=== PATIENT | female | born 1945 | race Caucasian/White ===

== ENCOUNTER → 2017-02-26 | Outpatient (CLI) | payer MEDICARE, OTHER ==
[~2017-02-26] MED LIST: ALBU8.5H5 INH; AMLO10TA2 PO; ATOR40TA78 PO; DICL100T2 PO; DOCU100T3 PO; ESOM40CA PO; FLUT250D INH; GABA600T2 PO; GLIP5TAB10 PO; HYDR-3144 PO; LISI40TA PO; LORA1TAB PO; SERT100T5 PO; TIOT18CA INH; TRAZ50TA18 PO; TRIA15CR3 TP; VALA1000 PO; VARE0.5T PO; VENL75TA2 PO
[2017-02-26 15:08] LABS: BLOOD UREA NITROGEN 18 mg/dL (7-18); PATH.CAST-FLAG NOT PRESENT; SPERM-FLAG NOT PRESENT; SRC-FLAG NOT PRESENT; XTAL-FLAG NOT PRESENT; YLC-FLAG NOT PRESENT
[2017-02-26 15:09] LABS: ASPARTATE AMINO TRANSFERASE 24 U/L (15-37)
[2017-02-27 10:06] LABS: CREATININE URINE 130.9 mg/dL (Not Estab.)
== END | disposition home or self-care (01) ==
LOC: LAB 14:20
PROVIDERS: ATTEND Internal Medicine
DX: I10 Essential (primary) hypertension (principal); E11.29 Type 2 diabetes mellitus with other diabetic kidney complication; E78.4 Other hyperlipidemia; G89.4 Chronic pain syndrome; Z20.5 Contact with and (suspected) exposure to viral hepatitis; F17.210 Nicotine dependence, cigarettes, uncomplicated
CPT/HCPCS: 36415; 80053; 80061; 81001; 82043; 82570; 83036; 84443; 85025; 86803; 87077; 87086

== ENCOUNTER → 2017-05-25 | Outpatient (CLI) | payer MEDICARE, OTHER ==
[2017-05-25 11:52] LABS: PATH.CAST-FLAG NOT PRESENT; SPERM-FLAG NOT PRESENT; SRC-FLAG NOT PRESENT; XTAL-FLAG NOT PRESENT; YLC-FLAG NOT PRESENT
[2017-05-25 12:00] LABS: ASPARTATE AMINO TRANSFERASE 24 U/L (15-37); BLOOD UREA NITROGEN 13 mg/dL (7-18)
== END | disposition home or self-care (01) ==
LOC: STAR 10:16
PROVIDERS: ATTEND Neurological Surgery
DX: Z01.818 Encounter for other preprocedural examination (principal); M51.36 Other intervertebral disc degeneration, lumbar region; M89.9 Disorder of bone, unspecified; R82.99 Other abnormal findings in urine; R79.1 Abnormal coagulation profile; Z96.611 Presence of right artificial shoulder joint
CPT/HCPCS: 36415; 71020; 80053; 81001; 85025; 85610; 85730; 87077; 87086; 93005

== ENCOUNTER 2017-06-04 05:45 | Inpatient (IN) | payer MEDICARE, OTHER ==
[~2017-06-04] VITALS: Ht 172.7 cm; Wt 70.2 kg
[2017-06-04] MEDS ORDERED: BUPIVACAINE/PF-EPI 0.5% 1:200K ONE (06:00)
[2017-06-04] MEDS ORDERED: THROMBIN 5,000 UNIT VIAL TP ONE (06:01)
[2017-06-04] MEDS ORDERED: BUPIVACAINE/PF 0.25% ONE (06:01)
[2017-06-04] MEDS ORDERED: BACITRACIN 50,000 UNIT ONE (06:01)
[2017-06-04] MEDS ORDERED: REMIFENTANIL 2 MG ONE ×2 (06:42→08:40)
[2017-06-04] MEDS ORDERED: LACTATED RINGERS 1,000 ML IV SCH (06:43)
[2017-06-04] MEDS ORDERED: FENTANYL PF 250 MCG/5ML ONE (06:50)
[2017-06-04] MEDS ORDERED: MIDAZOLAM 1 MG/ML, 2ML ONE (06:50)
[2017-06-04] MEDS ORDERED: PHENYLEPHRINE 10 MG/ML ONE (07:03)
[2017-06-04] MEDS ORDERED: GLYCOPYRROLATE 0.2MG/1ML ONE (07:03)
[2017-06-04] MEDS ORDERED: NEOSTIGMINE 1 MG/ML, 10ML ONE (07:03)
[2017-06-04] MEDS ORDERED: PROPOFOL 10 MG/ML, 20ML ONE (07:03)
[2017-06-04] MEDS ORDERED: DEXAMETHASONE 4 MG/ML, 1ML ONE (07:03)
[2017-06-04] MEDS ORDERED: ROCURONIUM 10 MG/ML ONE (07:03)
[2017-06-04] MEDS ORDERED: CEFAZOLIN 1,000 MG ONE (07:03)
[2017-06-04] MEDS ORDERED: METOCLOPRAMIDE 5 MG/ML, 2ML ONE (07:03)
[2017-06-04] MEDS ORDERED: ONDANSETRON 2MG/ML, 2ML ONE (07:03)
[2017-06-04] MEDS ORDERED: KETAMINE 10 MG/ML, 20ML ONE (07:14)
[2017-06-04] MEDS ORDERED: OXYcodone 5 MG/5 ML ORAL.SOL UDC PO PRN (07:30)
[2017-06-04] MEDS ORDERED: ACETAMINOPHEN 325 MG TABLET PO PRN (07:30)
[2017-06-04] MEDS ORDERED: HYDROmorphone 1 MG/ML, 1ML IV PRN (07:30)
[2017-06-04] MEDS ORDERED: ALBUTEROL SULFATE 2.5 MG/3 ML NPPB PRN ×2 (07:30→12:30)
[2017-06-04] MEDS ORDERED: MIDAZOLAM 1 MG/ML, 2ML IV PRN (07:30)
[2017-06-04] MEDS ORDERED: PROMETHAZINE 25 MG/ML, 1ML IV PRN (07:30)
[2017-06-04] MEDS ORDERED: FENTANYL PF 100 MCG/2ML IV PRN (07:30)
[2017-06-04] MEDS ORDERED: hydrALAzine 20 MG/ML, 1ML IV PRN (07:30)
[2017-06-04] MEDS ORDERED: LABETALOL 5MG/ML, 20ML IV PRN (07:30)
[2017-06-04] MEDS ORDERED: ONDANSETRON 2MG/ML, 2ML IVPush PRN ×2 (07:30→10:30)
[2017-06-04] MEDS ORDERED: BUPIVACAINE/PF-EPI 0.5% 1:200K INFIL ONE (08:05)
[2017-06-04] MEDS ORDERED: FENTANYL PF 100 MCG/2ML EPIDPUSH ONE (08:07)
[2017-06-04] MEDS ORDERED: FENTANYL PF 100 MCG/2ML ONE ×2 (09:45→11:03)
[2017-06-04] MEDS ORDERED: LORazepam 1MG TABLET PO PRN (10:30)
[2017-06-04] MEDS ORDERED: HYDROcodone/APAP 5/325 TABLET PO PRN (10:30)
[2017-06-04] MEDS ORDERED: INSULIN REGULAR 100 UNITS/ML, 3ML VIAL SQ-INSULIN PRN (10:30)
[2017-06-04] MEDS ORDERED: PROMETHAZINE 25 MG/ML, 1ML IM PRN (10:30)
[2017-06-04] MEDS ORDERED: PHARMACY MAY ADJ FOR RENAL FX MC PRN (10:30)
[2017-06-04] MEDS ORDERED: DIPHENHYDRAMINE 50 MG/ML, 1ML IVPush PRN (10:30)
[2017-06-04] MEDS ORDERED: ACETAMINOPHEN 650 MG/20.3 ML UDC ONE (11:02)
[2017-06-04] MEDS ORDERED: ACETAMINOPHEN 325 MG/10.15 ML UDC ONE (11:03)
[2017-06-04] MEDS ORDERED: OXYcodone 5 MG/5 ML ORAL.SOL UDC ONE (11:03)
[2017-06-04 12:00] VITALS: BP 123/72
[2017-06-04] MEDS: INSULIN REGULAR 100 UNITS/ML, 3ML VIAL SQ-INSULIN SCH ×3 (12:00→22:45)
[2017-06-04 12:10] VITALS: BP 123/72
[2017-06-04] MEDS ORDERED: ALBUTEROL/IPRATROPIUM 2.5MG/0.5MG, 3 ML ONE (13:34)
[2017-06-04] MEDS: ALBUTEROL/IPRATROPIUM 2.5MG/0.5MG, 3 ML NPPB SCH ×2 (13:40→21:00)
[2017-06-04 14:00] VITALS: BP 154/65
[2017-06-04] MEDS: HYDROcodone/APAP 10/325 MG TABLET PO PRN ×2 (15:45→22:32)
[2017-06-04] MEDS: GABAPENTIN 300 MG CAPSULE PO SCH ×2 (15:45→22:33)
[2017-06-04] MEDS: D5%-0.9% NACL+KCL 20MEQ 1,000 ML IV SCH (15:46)
[2017-06-04] MEDS: CEFAZOLIN PMX 1GM/50ML 50 ML IVPB SCH ×2 (15:46→22:32)
[2017-06-04] MEDS: morphine SULFATE 10 MG/ML, 1ML IVPush PRN (18:06)
[2017-06-04 20:15] VITALS: BP 162/79
[2017-06-04] MEDS ORDERED: FLUTICASONE FUROATE 200MCG/INH INH SCH (21:00)
[2017-06-04] MEDS: FLUTICASONE FUROATE 200MCG/INH INH SCH (21:00)
[2017-06-04 22:30] VITALS: BP 139/78
[2017-06-04] MEDS: ATORVASTATIN 40 MG TABLET PO SCH (22:32)
[2017-06-04] MEDS: LISINOPRIL 20 MG TABLET PO SCH (22:33)
[2017-06-04] MEDS: TRAZODONE 50MG TABLET PO SCH (22:37)
[2017-06-04] MEDS: SODIUM CHLORIDE FLUSH 10ML SYR IVF SCH (22:38)
[2017-06-04 23:40] VITALS: BP 143/66
[2017-06-05] MEDS: ALBUTEROL/IPRATROPIUM 2.5MG/0.5MG, 3 ML NPPB SCH ×4 (02:40→20:55)
[2017-06-05] MEDS: D5%-0.9% NACL+KCL 20MEQ 1,000 ML IV SCH ×2 (03:19→17:10)
[2017-06-05 03:53] VITALS: BP 133/71
[2017-06-05] MEDS: HYDROcodone/APAP 10/325 MG TABLET PO PRN ×2 (06:20→10:13)
[2017-06-05] MEDS: INSULIN REGULAR 100 UNITS/ML, 3ML VIAL SQ-INSULIN SCH ×4 (07:00→20:52)
[2017-06-05] MEDS ORDERED: FLUTICASONE FUROATE 200MCG/INH INH SCH (09:00)
[2017-06-05] MEDS: SODIUM CHLORIDE FLUSH 10ML SYR IVF SCH ×2 (09:00→20:45)
[2017-06-05] MEDS ORDERED: IPRATROPIUM 0.5 MG/2.5 ML INHA NPPB SCH (09:00)
[2017-06-05 09:30] VITALS: BP 108/56
[2017-06-05] MEDS: SERTRALINE 100MG TABLET PO SCH (09:40)
[2017-06-05] MEDS: PANTOPROZOLE 40MG TABLET PO SCH (09:40)
[2017-06-05] MEDS: AMLODIPINE 5 MG TABLET PO SCH (09:41)
[2017-06-05] MEDS: LISINOPRIL 20 MG TABLET PO SCH ×2 (09:41→20:47)
[2017-06-05] MEDS: GABAPENTIN 300 MG CAPSULE PO SCH ×3 (09:41→20:47)
[2017-06-05] MEDS: VALACYCLOVIR 500MG TABLET PO SCH (10:13)
[2017-06-05 13:55] VITALS: BP 102/57
[2017-06-05] MEDS: OXYcodone/APAP 5/325MG TABLET PO PRN ×2 (16:40→20:47)
[2017-06-05 19:45] VITALS: BP 131/70
[2017-06-05] MEDS: FLUTICASONE FUROATE 200MCG/INH INH SCH (20:44)
[2017-06-05] MEDS: CYCLOBENZAPRINE 10 MG TABLET PO PRN (20:47)
[2017-06-05] MEDS: ATORVASTATIN 40 MG TABLET PO SCH (20:47)
[2017-06-05] MEDS: TRAZODONE 50MG TABLET PO SCH (20:47)
[2017-06-06] MEDS: SENNA/DOCUSATE TABLET PO PRN (00:55)
[2017-06-06] MEDS: OXYcodone/APAP 5/325MG TABLET PO PRN ×5 (00:55→21:42)
[2017-06-06 00:57] VITALS: BP 111/52
[2017-06-06] MEDS: ALBUTEROL/IPRATROPIUM 2.5MG/0.5MG, 3 ML NPPB SCH ×4 (02:30→21:00)
[2017-06-06] MEDS: D5%-0.9% NACL+KCL 20MEQ 1,000 ML IV SCH ×2 (02:55→15:18)
[2017-06-06] MEDS: CYCLOBENZAPRINE 10 MG TABLET PO PRN (06:00)
[2017-06-06] MEDS: SODIUM CHLORIDE FLUSH 10ML SYR IVF SCH ×2 (09:00→21:41)
[2017-06-06 09:06] VITALS: BP 104/55
[2017-06-06] MEDS: KETOROLAC 30 MG/1 ML IV SCH ×3 (09:19→21:40)
[2017-06-06] MEDS: INSULIN REGULAR 100 UNITS/ML, 3ML VIAL SQ-INSULIN SCH ×4 (09:19→21:55)
[2017-06-06] MEDS: PANTOPROZOLE 40MG TABLET PO SCH (09:20)
[2017-06-06] MEDS: LISINOPRIL 20 MG TABLET PO SCH ×2 (09:20→21:41)
[2017-06-06] MEDS: SERTRALINE 100MG TABLET PO SCH (09:20)
[2017-06-06] MEDS: GABAPENTIN 300 MG CAPSULE PO SCH ×3 (09:21→21:00)
[2017-06-06] MEDS: AMLODIPINE 5 MG TABLET PO SCH (09:21)
[2017-06-06] MEDS: VALACYCLOVIR 500MG TABLET PO SCH (09:21)
[2017-06-06 13:55] VITALS: BP 107/53
[2017-06-06] MEDS: BISACODYL 10 MG SUPP PR PRN (15:18)
[2017-06-06 19:28] VITALS: BP 112/58
[2017-06-06] MEDS: FLUTICASONE FUROATE 200MCG/INH INH SCH (21:00)
[2017-06-06] MEDS: TRAZODONE 50MG TABLET PO SCH (21:41)
[2017-06-06] MEDS: ATORVASTATIN 40 MG TABLET PO SCH (21:42)
[2017-06-06 21:43] VITALS: BP 146/76
[2017-06-06] MEDS ORDERED: D5%-0.9% NACL+KCL 20MEQ 1,000 ML IV SCH (22:00)
[2017-06-07 00:09] VITALS: BP 142/70
[2017-06-07] MEDS: OXYcodone/APAP 5/325MG TABLET PO PRN ×4 (02:00→20:31)
[2017-06-07] MEDS: ALBUTEROL/IPRATROPIUM 2.5MG/0.5MG, 3 ML NPPB SCH ×2 (03:00→08:42)
[2017-06-07] MEDS: SODIUM CHLORIDE FLUSH 10ML SYR IVF SCH ×2 (07:57→21:55)
[2017-06-07] MEDS: PANTOPROZOLE 40MG TABLET PO SCH (07:57)
[2017-06-07] MEDS: INSULIN REGULAR 100 UNITS/ML, 3ML VIAL SQ-INSULIN SCH ×4 (07:57→20:34)
[2017-06-07] MEDS: SERTRALINE 100MG TABLET PO SCH (07:58)
[2017-06-07] MEDS: LISINOPRIL 20 MG TABLET PO SCH ×2 (07:58→21:58)
[2017-06-07] MEDS: AMLODIPINE 5 MG TABLET PO SCH (07:58)
[2017-06-07] MEDS: GABAPENTIN 300 MG CAPSULE PO SCH ×3 (07:58→21:56)
[2017-06-07 08:00] VITALS: BP 133/71
[2017-06-07] MEDS ORDERED: ALBUTEROL/IPRATROPIUM 2.5MG/0.5MG, 3 ML NPPB PRN (09:00)
[2017-06-07 16:55] VITALS: BP_SYST 160; BP_SYST 164; BP_DIAS 58; BP_DIAS 74
[2017-06-07 19:15] VITALS: BP 158/89
[2017-06-07] MEDS: FLUTICASONE FUROATE 200MCG/INH INH SCH (21:00)
[2017-06-07] MEDS: morphine SULFATE 10 MG/ML, 1ML IVPush PRN (21:41)
[2017-06-07] MEDS: ATORVASTATIN 40 MG TABLET PO SCH (21:56)
[2017-06-07] MEDS: TRAZODONE 50MG TABLET PO SCH (23:31)
[2017-06-07] MEDS: D5%-0.9% NACL+KCL 20MEQ 1,000 ML IV SCH (23:34)
[2017-06-08] MEDS: OXYcodone/APAP 5/325MG TABLET PO PRN ×4 (01:07→16:01)
[2017-06-08 03:00] VITALS: BP 149/89
[2017-06-08] MEDS: INSULIN REGULAR 100 UNITS/ML, 3ML VIAL SQ-INSULIN SCH ×2 (07:16→11:47)
[2017-06-08] MEDS: GABAPENTIN 300 MG CAPSULE PO SCH ×2 (07:48→16:04)
[2017-06-08] MEDS: morphine SULFATE 10 MG/ML, 1ML IVPush PRN (07:48)
[2017-06-08] MEDS: CYCLOBENZAPRINE 10 MG TABLET PO PRN ×2 (07:48→16:01)
[2017-06-08] MEDS: VALACYCLOVIR 500MG TABLET PO SCH (07:48)
[2017-06-08] MEDS: AMLODIPINE 5 MG TABLET PO SCH (07:49)
[2017-06-08] MEDS: SERTRALINE 100MG TABLET PO SCH (07:50)
[2017-06-08] MEDS: LISINOPRIL 20 MG TABLET PO SCH (07:50)
[2017-06-08] MEDS: PANTOPROZOLE 40MG TABLET PO SCH (07:50)
[2017-06-08] MEDS: D5%-0.9% NACL+KCL 20MEQ 1,000 ML IV SCH (08:00)
[2017-06-08 08:16] VITALS: BP 141/90
[2017-06-08] MEDS: SODIUM CHLORIDE FLUSH 10ML SYR IVF SCH (09:00)
[2017-06-08 13:54] VITALS: BP 131/64
[2017-06-08] MEDS: SENNA/DOCUSATE TABLET PO PRN (16:01)
[2017-06-08] MEDS: BISACODYL 10 MG SUPP PR PRN (16:04)
== END 2017-06-08 17:10 | DRG 453 ==
LOC: ORIP 05:45 → 4NOR 11:59
PROVIDERS: ADMIT Neurological Surgery; ATTEND Neurological Surgery
PROC: 0SG0071 Fusion of Lumbar Vertebral Joint with Autologous Tissue Substitute, Posterior Approach, Posterior Column, Open Approach (ICD-10-PCS; 2017-06-04)
PROC: 4A11X4G Monitoring of Peripheral Nervous Electrical Activity, Intraoperative, External Approach (ICD-10-PCS; 2017-06-04)
PROC: 0SB24ZZ Excision of Lumbar Vertebral Disc, Percutaneous Endoscopic Approach (ICD-10-PCS; 2017-06-04)
PROC: 00HU03Z Insertion of Infusion Device into Spinal Canal, Open Approach (ICD-10-PCS; 2017-06-04)
PROC: 3E0R3NZ Introduction of Analgesics, Hypnotics, Sedatives into Spinal Canal, Percutaneous Approach (ICD-10-PCS; 2017-06-04)
PROC: 0SG04A0 Fusion of Lumbar Vertebral Joint with Interbody Fusion Device, Anterior Approach, Anterior Column, Percutaneous Endoscopic Approach (ICD-10-PCS; principal; 2017-06-04 07:00)
DX: M48.06 Spinal stenosis, lumbar region (principal); J96.20 Acute and chronic respiratory failure, unspecified whether with hypoxia or hypercapnia; J44.9 Chronic obstructive pulmonary disease, unspecified; G89.29 Other chronic pain; M51.16 Intervertebral disc disorders with radiculopathy, lumbar region; Z88.8 Allergy status to other drugs, medicaments and biological substances; Z91.018 Allergy to other foods; Z87.891 Personal history of nicotine dependence
CPT/HCPCS: 72100; 82962; 94640; C1713; J0690; J1100; J1815; J1885; J2250; J2405; J2704; J2710; J3010; J3490; J7620; C1760; C1762; J2270; J2370; J2765; J3480; J7120

== ENCOUNTER 2017-06-30 13:59 | Inpatient (IN) | payer MEDICARE, OTHER ==
[~2017-06-30] VITALS: Ht 172.7 cm; Wt 80.8 kg
[~2017-06-30 13:59] MED LIST changes: -HYDR-3144 PO; +HYDR-3245 PO
[2017-06-30] MEDS ORDERED: SODIUM CHLORIDE 0.9% 1,000 ML IV ONE (14:29)
[2017-06-30] MEDS ORDERED: ONDANSETRON 2MG/ML, 2ML IVPush ONE (14:30)
[2017-06-30] MEDS ORDERED: LORazepam 2 MG/ML, 1ML IVPush STA (14:31)
[2017-06-30] MEDS ORDERED: ONDANSETRON 2MG/ML, 2ML ONE (14:34)
[2017-06-30] MEDS ORDERED: HYDROmorphone 1 MG/ML, 1ML ONE ×2 (14:34→18:33)
[2017-06-30] MEDS ORDERED: LORazepam 2 MG/ML, 1ML ONE (14:35)
[2017-06-30] MEDS: HYDROmorphone 1 MG/ML, 1ML IVPush PRN ×2 (14:48→18:38)
[2017-06-30 15:07] LABS: HEMATOCRIT 34.1 % (34.6-47.8); HEMOGLOBIN 10.9 g/dL (11.7-16.4); WHITE BLOOD COUNT 6.4 x10^3/uL (3.4-10)
[2017-06-30 15:11] LABS: BLOOD UREA NITROGEN 7 mg/dL (7-18)
[2017-06-30] MEDS ORDERED: METH750T87 PO (17:44)
[2017-06-30] MEDS ORDERED: SENN-99 PO (17:44)
[2017-06-30] MEDS ORDERED: SERT100T5 PO (17:44)
[2017-06-30] MEDS ORDERED: INSU100V5 SQ-INSULIN (17:44)
[2017-06-30] MEDS ORDERED: DOCU-131 PO (17:44)
[2017-06-30] MEDS ORDERED: PANT40TA3 PO (17:44)
[2017-06-30 17:59] LABS: PATH.CAST-FLAG NOT PRESENT; SPERM-FLAG NOT PRESENT; SRC-FLAG NOT PRESENT; XTAL-FLAG NOT PRESENT; YLC-FLAG NOT PRESENT
[2017-06-30] MEDS ORDERED: DEXTROSE 50%, 50ML SYRINGE IVPush PRN (18:00)
[2017-06-30] MEDS ORDERED: DEXTROSE 4 GM TAB.CHEW PO PRN (18:00)
[2017-06-30] MEDS ORDERED: GLUCAGON 1 MG IM PRN (18:00)
[2017-06-30] MEDS ORDERED: VALACYCLOVIR 500MG TABLET PO SCH (18:00)
[2017-06-30] MEDS ORDERED: DIAZEPAM 5 MG/ML, 10ML VIAL IV PRN (18:00)
[2017-06-30] MEDS: INSULIN ASPART 100 UNITS/ML, PEN SQ-INSULIN SCH (18:00)
[2017-06-30] MEDS ORDERED: ACETAMINOPHEN 325 MG TABLET PO PRN (18:30)
[2017-06-30] MEDS ORDERED: POLYETHYLENE GLYCOL 17 GM PACKET PO PRN (18:30)
[2017-06-30] MEDS ORDERED: ONDANSETRON 2MG/ML, 2ML IVPush PRN (18:30)
[2017-06-30] MEDS ORDERED: PROMETHAZINE 25 MG/ML, 1ML IM PRN (18:30)
[2017-06-30] MEDS ORDERED: BISACODYL 10 MG SUPP PR PRN (18:30)
[2017-06-30] MEDS: METHOCARBAMOL 750 MG in DEXTROSE 5% 100 ML IV SCH ×3 (20:00→23:01)
[2017-06-30] MEDS ORDERED: DEXAMETHASONE 4 MG/ML, 1ML ONE (20:19)
[2017-06-30] MEDS ORDERED: ENOXAPARIN 40 MG/0.4 ML ONE (20:19)
[2017-06-30] MEDS: DEXAMETHASONE 4 MG/ML, 1ML IVPush SCH (20:28)
[2017-06-30] MEDS: ENOXAPARIN 40 MG/0.4 ML SQ SCH (20:28)
[2017-06-30] MEDS ORDERED: hydrALAzine 20 MG/ML, 1ML ONE (20:34)
[2017-06-30] MEDS ORDERED: KETOROLAC 30 MG/1 ML ONE (20:37)
[2017-06-30] MEDS ORDERED: OXYcodone IR 5MG TABLET ONE (20:37)
[2017-06-30] MEDS: OXYcodone IR 5MG TABLET PO PRN (20:40)
[2017-06-30] MEDS: hydrALAzine 20 MG/ML, 1ML IVPush PRN (20:41)
[2017-06-30] MEDS: KETOROLAC 30 MG/1 ML IVPush PRN (20:42)
[2017-06-30 22:00] VITALS: BP 159/79
[2017-06-30] MEDS: SODIUM CHLORIDE FLUSH 10ML SYR IVF SCH (22:48)
[2017-06-30] MEDS: DOCUSATE 100 MG CAPSULE PO SCH (22:48)
[2017-06-30] MEDS: TRAZODONE 50MG TABLET PO SCH (22:49)
[2017-06-30] MEDS: LISINOPRIL 20 MG TABLET PO SCH (22:51)
[2017-06-30] MEDS: ATORVASTATIN 40 MG TABLET PO SCH (22:51)
[2017-06-30] MEDS: SENNOSIDES 8.6 MG TABLET PO SCH (22:51)
[2017-06-30] MEDS: GABAPENTIN 300 MG CAPSULE PO SCH (22:57)
[2017-07-01] MEDS: DEXAMETHASONE 4 MG/ML, 1ML IVPush SCH ×4 (02:31→21:02)
[2017-07-01 06:50] VITALS: BP 133/81
[2017-07-01] MEDS: METHOCARBAMOL 750 MG in DEXTROSE 5% 100 ML IV SCH ×4 (07:15→21:08)
[2017-07-01] MEDS: INSULIN ASPART 100 UNITS/ML, PEN SQ-INSULIN SCH ×2 (07:30→16:35)
[2017-07-01 08:17] LABS: ASPARTATE AMINO TRANSFERASE 15 U/L (15-37); BLOOD UREA NITROGEN 11 mg/dL (7-18)
[2017-07-01 08:19] LABS: HEMATOCRIT 34.8 % (34.6-47.8); HEMOGLOBIN 11.4 g/dL (11.7-16.4); WHITE BLOOD COUNT 4.5 x10^3/uL (3.4-10)
[2017-07-01] MEDS: SODIUM CHLORIDE FLUSH 10ML SYR IVF SCH ×2 (09:00→21:04)
[2017-07-01] MEDS: SENNOSIDES 8.6 MG TABLET PO SCH ×2 (09:35→21:03)
[2017-07-01] MEDS: LISINOPRIL 20 MG TABLET PO SCH ×2 (09:35→21:03)
[2017-07-01] MEDS: AMLODIPINE 5 MG TABLET PO SCH (09:35)
[2017-07-01] MEDS: GABAPENTIN 300 MG CAPSULE PO SCH ×3 (09:35→21:03)
[2017-07-01] MEDS: PANTOPROZOLE 40MG TABLET PO SCH (09:35)
[2017-07-01] MEDS: SERTRALINE 100MG TABLET PO SCH (09:35)
[2017-07-01] MEDS: OXYcodone IR 5MG TABLET PO PRN ×4 (09:36→21:55)
[2017-07-01] MEDS: DOCUSATE 100 MG CAPSULE PO SCH ×2 (09:36→21:03)
[2017-07-01] MEDS: KETOROLAC 30 MG/1 ML IVPush PRN (12:56)
[2017-07-01 14:10] VITALS: BP 153/66
[2017-07-01] MEDS: ENOXAPARIN 40 MG/0.4 ML SQ SCH (17:49)
[2017-07-01 21:01] VITALS: BP 152/71
[2017-07-01] MEDS: ATORVASTATIN 40 MG TABLET PO SCH (21:03)
[2017-07-01] MEDS: TRAZODONE 50MG TABLET PO SCH (21:42)
[2017-07-02] MEDS: DEXAMETHASONE 4 MG/ML, 1ML IVPush SCH ×4 (02:11→20:52)
[2017-07-02] MEDS: OXYcodone IR 5MG TABLET PO PRN ×4 (02:12→23:21)
[2017-07-02 02:27] VITALS: BP 170/70
[2017-07-02] MEDS: METHOCARBAMOL 750 MG in DEXTROSE 5% 100 ML IV SCH ×4 (05:57→20:52)
[2017-07-02] MEDS ORDERED: VALACYCLOVIR 500MG TABLET PO SCH ×2 (09:00→21:00)
[2017-07-02] MEDS: SODIUM CHLORIDE FLUSH 10ML SYR IVF SCH ×2 (09:00→20:52)
[2017-07-02 09:34] VITALS: BP 176/84
[2017-07-02] MEDS: INSULIN ASPART 100 UNITS/ML, PEN SQ-INSULIN SCH ×2 (09:37→16:24)
[2017-07-02] MEDS: SERTRALINE 100MG TABLET PO SCH (09:37)
[2017-07-02] MEDS: GABAPENTIN 300 MG CAPSULE PO SCH ×3 (09:38→20:52)
[2017-07-02] MEDS: AMLODIPINE 5 MG TABLET PO SCH (09:38)
[2017-07-02] MEDS: SENNOSIDES 8.6 MG TABLET PO SCH ×2 (09:38→20:52)
[2017-07-02] MEDS: DOCUSATE 100 MG CAPSULE PO SCH ×2 (09:39→20:52)
[2017-07-02] MEDS: LISINOPRIL 20 MG TABLET PO SCH ×2 (09:40→20:52)
[2017-07-02] MEDS: PANTOPROZOLE 40MG TABLET PO SCH (09:40)
[2017-07-02] MEDS: CALCIUM CARBONATE 500 MG TAB.CHEW PO PRN (11:02)
[2017-07-02 14:23] VITALS: BP 167/76
[2017-07-02] MEDS: VALACYCLOVIR 500MG TABLET PO SCH ×2 (16:00→16:17)
[2017-07-02] MEDS: ENOXAPARIN 40 MG/0.4 ML SQ SCH (17:43)
[2017-07-02 19:23] VITALS: BP 163/77
[2017-07-02] MEDS: ATORVASTATIN 40 MG TABLET PO SCH (20:51)
[2017-07-02 20:55] VITALS: BP 172/83
[2017-07-02] MEDS: TRAZODONE 50MG TABLET PO SCH (22:20)
[2017-07-03] VITALS (8 sets, daily range): BP systolic 145–195; BP diastolic 65–87
[2017-07-03] MEDS: DEXAMETHASONE 4 MG/ML, 1ML IVPush SCH ×4 (02:59→20:24)
[2017-07-03] MEDS: OXYcodone IR 5MG TABLET PO PRN ×4 (03:05→20:40)
[2017-07-03 04:50] LABS: HEMATOCRIT 34.1 % (34.6-47.8); WHITE BLOOD COUNT 5.8 x10^3/uL (3.4-10)
[2017-07-03 04:55] LABS: BLOOD UREA NITROGEN 14 mg/dL (7-18)
[2017-07-03] MEDS: METHOCARBAMOL 750 MG in DEXTROSE 5% 100 ML IV SCH ×4 (06:12→20:25)
[2017-07-03] MEDS: INSULIN ASPART 100 UNITS/ML, PEN SQ-INSULIN SCH ×4 (07:47→20:23)
[2017-07-03] MEDS: PANTOPROZOLE 40MG TABLET PO SCH (07:51)
[2017-07-03] MEDS: SENNOSIDES 8.6 MG TABLET PO SCH ×2 (08:06→20:31)
[2017-07-03] MEDS: LISINOPRIL 20 MG TABLET PO SCH ×2 (08:06→20:25)
[2017-07-03] MEDS: SERTRALINE 100MG TABLET PO SCH (08:06)
[2017-07-03] MEDS: GABAPENTIN 300 MG CAPSULE PO SCH ×3 (08:07→20:31)
[2017-07-03] MEDS: DOCUSATE 100 MG CAPSULE PO SCH ×2 (08:07→20:26)
[2017-07-03] MEDS: AMLODIPINE 5 MG TABLET PO SCH (08:07)
[2017-07-03] MEDS: SODIUM CHLORIDE FLUSH 10ML SYR IVF SCH ×2 (08:11→20:25)
[2017-07-03] MEDS: HYDROmorphone 2 MG/ML, 1ML IVPush PRN ×3 (09:39→17:53)
[2017-07-03] MEDS: hydrALAzine 20 MG/ML, 1ML IVPush PRN (10:28)
[2017-07-03] MEDS: METOPROLOL TARTRATE 25 MG TABLET PO SCH ×2 (11:16→20:26)
[2017-07-03 11:29] LABS: IS PT STATUS REG ER OR PRE ER? NO
[2017-07-03 16:59] LABS: IS PT STATUS REG ER OR PRE ER? NO
[2017-07-03] MEDS ORDERED: METOPROLOL TARTRATE 25 MG TABLET PO SCH (18:00)
[2017-07-03] MEDS: ENOXAPARIN 40 MG/0.4 ML SQ SCH (18:56)
[2017-07-03] MEDS: ATORVASTATIN 40 MG TABLET PO SCH (20:26)
[2017-07-03] MEDS: FAMOTIDINE 20 MG TABLET PO SCH (20:26)
[2017-07-03] MEDS: TRAZODONE 50MG TABLET PO SCH (20:40)
[2017-07-04] MEDS: DEXAMETHASONE 4 MG/ML, 1ML IVPush SCH ×4 (02:46→22:01)
[2017-07-04 04:08] VITALS: BP 163/68
[2017-07-04] MEDS: OXYcodone IR 5MG TABLET PO PRN ×3 (04:20→21:05)
[2017-07-04] MEDS: METHOCARBAMOL 750 MG in DEXTROSE 5% 100 ML IV SCH ×4 (05:43→22:01)
[2017-07-04] MEDS: METOPROLOL TARTRATE 25 MG TABLET PO SCH (05:47)
[2017-07-04 06:40] VITALS: BP 181/71
[2017-07-04] MEDS: INSULIN ASPART 100 UNITS/ML, PEN SQ-INSULIN SCH ×4 (07:31→21:15)
[2017-07-04] MEDS: AMLODIPINE 5 MG TABLET PO SCH (09:19)
[2017-07-04] MEDS: DOCUSATE 100 MG CAPSULE PO SCH ×2 (09:19→21:15)
[2017-07-04] MEDS: PANTOPROZOLE 40MG TABLET PO SCH (09:19)
[2017-07-04] MEDS: LISINOPRIL 20 MG TABLET PO SCH ×2 (09:19→21:06)
[2017-07-04] MEDS: SENNOSIDES 8.6 MG TABLET PO SCH ×2 (09:19→21:08)
[2017-07-04] MEDS: SERTRALINE 100MG TABLET PO SCH (09:20)
[2017-07-04] MEDS: SODIUM CHLORIDE FLUSH 10ML SYR IVF SCH ×2 (09:24→21:07)
[2017-07-04] MEDS: GABAPENTIN 300 MG CAPSULE PO SCH ×3 (09:24→21:07)
[2017-07-04 11:40] VITALS: BP 193/51
[2017-07-04] MEDS: CALCIUM CARBONATE 500 MG TAB.CHEW PO PRN ×2 (11:45→22:13)
[2017-07-04] MEDS: hydrALAzine 20 MG/ML, 1ML IVPush PRN (11:56)
[2017-07-04 13:50] VITALS: BP 164/74
[2017-07-04 16:30] VITALS: BP 162/76
[2017-07-04 18:36] VITALS: BP 156/73
[2017-07-04] MEDS: HYDROmorphone 2 MG/ML, 1ML IVPush PRN ×2 (18:47→22:57)
[2017-07-04] MEDS: TRAZODONE 50MG TABLET PO SCH (21:06)
[2017-07-04] MEDS: FAMOTIDINE 20 MG TABLET PO SCH (21:07)
[2017-07-04] MEDS: ATORVASTATIN 40 MG TABLET PO SCH (21:07)
[2017-07-05 01:54] VITALS: BP 146/70
[2017-07-05] MEDS: HYDROmorphone 2 MG/ML, 1ML IVPush PRN ×2 (02:07→05:12)
[2017-07-05] MEDS: DEXAMETHASONE 4 MG/ML, 1ML IVPush SCH ×4 (03:49→22:41)
[2017-07-05 05:36] LABS: HEMATOCRIT 36.9 % (34.6-47.8); HEMOGLOBIN 12.1 g/dL (11.7-16.4); WHITE BLOOD COUNT 7.6 x10^3/uL (3.4-10)
[2017-07-05] MEDS: METHOCARBAMOL 750 MG in DEXTROSE 5% 100 ML IV SCH ×3 (05:37→20:10)
[2017-07-05] MEDS: hydrALAzine 20 MG/ML, 1ML IVPush PRN (05:38)
[2017-07-05 05:40] LABS: BLOOD UREA NITROGEN 21 mg/dL (7-18)
[2017-07-05 06:14] VITALS: BP 148/65
[2017-07-05] MEDS: INSULIN ASPART 100 UNITS/ML, PEN SQ-INSULIN SCH ×4 (06:21→21:35)
[2017-07-05] MEDS ORDERED: MIDAZOLAM 1 MG/ML, 2ML ONE (06:54)
[2017-07-05] MEDS ORDERED: REMIFENTANIL 2 MG ONE ×2 (06:55)
[2017-07-05] MEDS ORDERED: FENTANYL PF 100 MCG/2ML ONE ×2 (06:55→06:57)
[2017-07-05] MEDS ORDERED: EPINEPHRINE 1 MG/ML, 1ML ONE (06:57)
[2017-07-05] MEDS ORDERED: BUPIVACAINE 0.25% ONE (06:57)
[2017-07-05] MEDS ORDERED: BUPIVACAINE/PF 0.5% ONE (06:57)
[2017-07-05] MEDS ORDERED: THROMBIN 5,000 UNIT VIAL TP ONE (06:58)
[2017-07-05] MEDS ORDERED: BACITRACIN 50,000 UNIT ONE (06:58)
[2017-07-05] MEDS ORDERED: PROPOFOL 10 MG/ML, 20ML ONE (07:24)
[2017-07-05] MEDS ORDERED: DEXAMETHASONE 4 MG/ML, 1ML ONE (07:24)
[2017-07-05] MEDS ORDERED: CEFAZOLIN 1,000 MG ONE (07:24)
[2017-07-05] MEDS ORDERED: PHENYLEPHRINE 10 MG/ML ONE (07:24)
[2017-07-05] MEDS ORDERED: ONDANSETRON 2MG/ML, 2ML ONE (07:24)
[2017-07-05] MEDS ORDERED: EPHEDRINE 50 MG/ML, 1ML ONE (07:24)
[2017-07-05] MEDS ORDERED: SUCCINYLCHOLINE 20 MG/ML, 10ML ONE (07:24)
[2017-07-05] MEDS ORDERED: ROCURONIUM 10 MG/ML ONE (07:24)
[2017-07-05] MEDS ORDERED: PROPOFOL 10 MG/ML, 50ML ONE (07:24)
[2017-07-05] MEDS ORDERED: KETAMINE 10 MG/ML, 20ML ONE (07:47)
[2017-07-05] MEDS ORDERED: BUPIVACAINE/PF-EPI 0.5% 1:200K INFIL ONE (08:15)
[2017-07-05] MEDS ORDERED: LABETALOL 5MG/ML, 20ML IV PRN ×3 (08:30→14:30)
[2017-07-05] MEDS ORDERED: OXYcodone 5 MG/5 ML ORAL.SOL UDC PO PRN (08:30)
[2017-07-05] MEDS ORDERED: MIDAZOLAM 1 MG/ML, 2ML IV PRN (08:30)
[2017-07-05] MEDS ORDERED: hydrALAzine 20 MG/ML, 1ML IV PRN (08:30)
[2017-07-05] MEDS ORDERED: MEPERIDINE/PF 25MG/0.5ML IVPush PRN (08:30)
[2017-07-05] MEDS ORDERED: ACETAMINOPHEN 325 MG TABLET PO PRN ×2 (08:30→14:30)
[2017-07-05] MEDS ORDERED: HYDROmorphone 1 MG/ML, 1ML IV PRN (08:30)
[2017-07-05] MEDS ORDERED: ONDANSETRON 2MG/ML, 2ML IVPush PRN (08:30)
[2017-07-05] MEDS ORDERED: PROMETHAZINE 25 MG/ML, 1ML IV PRN (08:30)
[2017-07-05] MEDS ORDERED: FENTANYL PF 100 MCG/2ML IV PRN (08:30)
[2017-07-05] MEDS ORDERED: HYDROmorphone 2 MG/ML, 1ML ONE (08:40)
[2017-07-05] MEDS: GABAPENTIN 300 MG CAPSULE PO SCH ×3 (09:00→21:31)
[2017-07-05] MEDS: SENNOSIDES 8.6 MG TABLET PO SCH ×2 (09:00→21:00)
[2017-07-05] MEDS: DOCUSATE 100 MG CAPSULE PO SCH ×2 (09:00→21:29)
[2017-07-05] MEDS: SODIUM CHLORIDE FLUSH 10ML SYR IVF SCH ×2 (09:00→21:29)
[2017-07-05] MEDS: AMLODIPINE 5 MG TABLET PO SCH (09:00)
[2017-07-05] MEDS: LISINOPRIL 20 MG TABLET PO SCH ×2 (09:00→21:32)
[2017-07-05] MEDS: PANTOPROZOLE 40MG TABLET PO SCH (09:00)
[2017-07-05] MEDS ORDERED: HYDROmorphone PCA 30 MG/30 ML ONE (09:44)
[2017-07-05] MEDS ORDERED: OXYcodone 5 MG/5 ML ORAL.SOL UDC ONE (09:44)
[2017-07-05] MEDS ORDERED: HYDROmorphone PCA 30 MG/30 ML IV PRN (10:00)
[2017-07-05] MEDS ORDERED: INSULIN REGULAR 100 UNITS/ML, 3ML VIAL SQ-INSULIN SCH ×2 (11:00→16:00)
[2017-07-05] MEDS ORDERED: DIPHENHYDRAMINE 50 MG CAPSULE PO PRN (11:30)
[2017-07-05] MEDS ORDERED: PROMETHAZINE 25 MG/ML, 1ML IM PRN ×2 (11:30→14:30)
[2017-07-05] MEDS ORDERED: ONDANSETRON 2MG/ML, 2ML IV PRN ×2 (11:30→14:30)
[2017-07-05] MEDS ORDERED: BISACODYL 10 MG SUPP PR PRN ×2 (11:30→14:30)
[2017-07-05] MEDS ORDERED: MAGNESIUM HYDROXIDE 8%, 30ML UDC PO PRN ×2 (11:30→14:30)
[2017-07-05] MEDS: SERTRALINE 100MG TABLET PO SCH (11:48)
[2017-07-05] MEDS: NS + 20MEQ KCL 1,000 ML IV SCH ×2 (11:50→22:00)
[2017-07-05] MEDS ORDERED: METHOCARBAMOL 1,000 MG in DEXTROSE 5% 100 ML IV ONE (12:00)
[2017-07-05 14:00] VITALS: BP 122/55
[2017-07-05] MEDS ORDERED: GLUCAGON 1 MG IM PRN (14:30)
[2017-07-05] MEDS ORDERED: DEXTROSE 50%, 50ML SYRINGE IVPush PRN (14:30)
[2017-07-05] MEDS ORDERED: ALBUTEROL/IPRATROPIUM 2.5MG/0.5MG, 3 ML NPPB PRN ×2 (14:30)
[2017-07-05] MEDS ORDERED: POLYETHYLENE GLYCOL 17 GM PACKET PO PRN (14:30)
[2017-07-05] MEDS ORDERED: DEXTROSE 4 GM TAB.CHEW PO PRN (14:30)
[2017-07-05] MEDS: CEFAZOLIN PMX 1GM/50ML 50 ML IVPB SCH ×2 (15:32→22:42)
[2017-07-05 18:55] VITALS: BP 134/56
[2017-07-05] MEDS ORDERED: VALACYCLOVIR 500MG TABLET PO SCH (21:00)
[2017-07-05] MEDS: ATORVASTATIN 40 MG TABLET PO SCH (21:30)
[2017-07-05] MEDS: TRAZODONE 50MG TABLET PO SCH (21:30)
[2017-07-05] MEDS: FAMOTIDINE 20 MG TABLET PO SCH (21:31)
[2017-07-06 00:42] VITALS: BP 149/76
[2017-07-06] MEDS: METHOCARBAMOL 750 MG in DEXTROSE 5% 100 ML IV SCH ×3 (04:20→20:28)
[2017-07-06] MEDS: DEXAMETHASONE 4 MG/ML, 1ML IVPush SCH (04:20)
[2017-07-06 04:36] VITALS: BP 131/70
[2017-07-06 04:39] LABS: HEMATOCRIT 31.3 % (34.6-47.8); HEMOGLOBIN 10.3 g/dL (11.7-16.4); WHITE BLOOD COUNT 9.8 x10^3/uL (3.4-10)
[2017-07-06 04:50] LABS: BLOOD UREA NITROGEN 21 mg/dL (7-18)
[2017-07-06 07:05] VITALS: BP 126/64
[2017-07-06] MEDS: CEFAZOLIN PMX 1GM/50ML 50 ML IVPB SCH ×3 (07:51→22:49)
[2017-07-06] MEDS: INSULIN ASPART 100 UNITS/ML, PEN SQ-INSULIN SCH ×4 (07:52→20:43)
[2017-07-06] MEDS: NS + 20MEQ KCL 1,000 ML IV SCH ×2 (07:52→16:21)
[2017-07-06] MEDS: SODIUM CHLORIDE FLUSH 10ML SYR IVF SCH ×2 (07:53→20:43)
[2017-07-06] MEDS: GABAPENTIN 300 MG CAPSULE PO SCH ×3 (07:53→20:34)
[2017-07-06] MEDS: AMLODIPINE 5 MG TABLET PO SCH (07:53)
[2017-07-06] MEDS: DOCUSATE 100 MG CAPSULE PO SCH ×2 (07:53→20:33)
[2017-07-06] MEDS: PANTOPROZOLE 40MG TABLET PO SCH (07:54)
[2017-07-06] MEDS: LISINOPRIL 20 MG TABLET PO SCH ×2 (07:54→20:35)
[2017-07-06] MEDS: SERTRALINE 100MG TABLET PO SCH (07:54)
[2017-07-06] MEDS: SENNA/DOCUSATE TABLET PO SCH (07:55)
[2017-07-06] MEDS: SENNOSIDES 8.6 MG TABLET PO SCH ×2 (08:00→20:35)
[2017-07-06] MEDS ORDERED: SENNA/DOCUSATE TABLET PO SCH ×2 (09:00)
[2017-07-06] MEDS: OXYcodone IR 5MG TABLET PO PRN (11:03)
[2017-07-06] MEDS ORDERED: CALCIUM CARBONATE 500 MG TAB.CHEW ONE (11:17)
[2017-07-06] MEDS: CALCIUM CARBONATE 500 MG TAB.CHEW PO PRN ×2 (12:02→19:19)
[2017-07-06] MEDS ORDERED: OXYcodone IR 5MG TABLET PO PRN (14:30)
[2017-07-06 14:31] VITALS: BP 129/64
[2017-07-06] MEDS: DEXAMETHASONE 4 MG TABLET PO SCH (16:28)
[2017-07-06 20:03] VITALS: BP 134/54
[2017-07-06] MEDS: ATORVASTATIN 40 MG TABLET PO SCH (20:33)
[2017-07-06] MEDS: TRAZODONE 50MG TABLET PO SCH (20:33)
[2017-07-06] MEDS: FAMOTIDINE 20 MG TABLET PO SCH (20:34)
[2017-07-07] MEDS: OXYcodone IR 5MG TABLET PO PRN ×2 (01:33→06:25)
[2017-07-07 01:52] VITALS: BP 160/76
[2017-07-07] MEDS: NS + 20MEQ KCL 1,000 ML IV SCH ×2 (04:00→14:00)
[2017-07-07] MEDS: METHOCARBAMOL 750 MG in DEXTROSE 5% 100 ML IV SCH ×2 (04:24→12:29)
[2017-07-07] MEDS: INSULIN ASPART 100 UNITS/ML, PEN SQ-INSULIN SCH ×3 (06:19→17:16)
[2017-07-07] MEDS: CEFAZOLIN PMX 1GM/50ML 50 ML IVPB SCH ×2 (06:54→15:25)
[2017-07-07 07:10] VITALS: BP 154/64
[2017-07-07] MEDS ORDERED: DEXA4TAB PO (08:37)
[2017-07-07] MEDS ORDERED: OXYC5TAB3 PO (08:37)
[2017-07-07] MEDS ORDERED: FAMO20TA7 PO (08:37)
[2017-07-07] MEDS: DOCUSATE 100 MG CAPSULE PO SCH (08:39)
[2017-07-07] MEDS: GABAPENTIN 300 MG CAPSULE PO SCH ×2 (08:39→16:16)
[2017-07-07] MEDS: LISINOPRIL 20 MG TABLET PO SCH (08:42)
[2017-07-07] MEDS: AMLODIPINE 5 MG TABLET PO SCH (08:43)
[2017-07-07] MEDS: SENNA/DOCUSATE TABLET PO SCH (08:44)
[2017-07-07] MEDS: SENNOSIDES 8.6 MG TABLET PO SCH (08:44)
[2017-07-07] MEDS: SERTRALINE 100MG TABLET PO SCH (08:45)
[2017-07-07] MEDS: SODIUM CHLORIDE FLUSH 10ML SYR IVF SCH (08:49)
[2017-07-07] MEDS: PANTOPROZOLE 40MG TABLET PO SCH (10:24)
[2017-07-07] MEDS: DEXAMETHASONE 4 MG TABLET PO SCH ×2 (10:24→17:15)
[2017-07-07] MEDS: morphine SULFATE 10 MG/ML, 1ML IV PRN ×2 (11:12→12:30)
[2017-07-07] MEDS ORDERED: METHOCARBAMOL 750 MG TABLET PO SCH (20:00)
== END 2017-07-07 17:55 | disposition home or self-care (01) | DRG 459 ==
LOC: ED 14:56 → EDIP 16:55 → 4NOR 21:45
PROVIDERS: ADMIT Hospitalist
PROC: 01NB0ZZ Release Lumbar Nerve, Open Approach (ICD-10-PCS; 2017-07-05)
PROC: 0SG0071 Fusion of Lumbar Vertebral Joint with Autologous Tissue Substitute, Posterior Approach, Posterior Column, Open Approach (ICD-10-PCS; principal; 2017-07-05 07:30)
DX: M51.16 Intervertebral disc disorders with radiculopathy, lumbar region (principal); R53.2 Functional quadriplegia; I11.9 Hypertensive heart disease without heart failure; S32.051A Stable burst fracture of fifth lumbar vertebra, initial encounter for closed fracture; E11.9 Type 2 diabetes mellitus without complications; D63.8 Anemia in other chronic diseases classified elsewhere; E44.1 Mild protein-calorie malnutrition; R62.7 Adult failure to thrive; E78.5 Hyperlipidemia, unspecified; G89.29 Other chronic pain; K21.9 Gastro-esophageal reflux disease without esophagitis; M53.3 Sacrococcygeal disorders, not elsewhere classified; Z79.84 Long term (current) use of oral hypoglycemic drugs; Z79.4 Long term (current) use of insulin; Z80.6 Family history of leukemia; Z86.61 Personal history of infections of the central nervous system; Z87.891 Personal history of nicotine dependence; Z88.8 Allergy status to other drugs, medicaments and biological substances; Z91.018 Allergy to other foods; Z68.27 Body mass index [BMI] 27.0-27.9, adult; R07.9 Chest pain, unspecified; M48.06 Spinal stenosis, lumbar region
CPT/HCPCS: 36415; 71010; 72100; 72131; 72148; 80048; 80053; 81001; 82040; 82962; 84484; 85025; 85610; 85651; 86141; 87086; 93005; 96361; 96374; 96375; 96376; C1713; J0171; J0690; J1100; J1170; J1650; J1815; J1885; J2250; J2405; J2704; J3010; J3480; J3490; C1751; C1762; J0330; J0360; J2060; J2270; J2370; J2800; J7030

== ENCOUNTER → 2017-08-11 | Outpatient (CLI) | payer MEDICARE, OTHER ==
[~2017-08-11] MED LIST changes: +DEXA4TAB PO; -DICL100T2 PO; +DICL100T4 PO; +DOCU-131 PO; +FAMO20TA7 PO; +INSU100V5 SQ-INSULIN; +METH750T87 PO; +OXYC5TAB3 PO; +PANT40TA3 PO; +SENN-99 PO
== END | disposition home or self-care (01) ==
LOC: RAD 16:06
PROVIDERS: ATTEND Physician Assistant Surgical
DX: S33.140A Subluxation of L4/L5 lumbar vertebra, initial encounter (principal); M47.897 Other spondylosis, lumbosacral region; M16.11 Unilateral primary osteoarthritis, right hip; M25.78 Osteophyte, vertebrae; Z98.1 Arthrodesis status; Z98.890 Other specified postprocedural states; X58.XXXA Exposure to other specified factors, initial encounter; Y93.89 Activity, other specified; Y92.89 Other specified places as the place of occurrence of the external cause; Y99.8 Other external cause status
CPT/HCPCS: 72100

== ENCOUNTER → 2017-09-12 | Outpatient (CLI) | payer MEDICARE, OTHER | LOC: RAD 12:53 | PROVIDERS: ATTEND Physician Assistant Surgical | DX: Z02.9 Encounter for administrative examinations, unspecified (principal) ==

== ENCOUNTER → 2017-09-21 | Outpatient (CLI) | payer MEDICARE, OTHER | LOC: RAD 13:07 | PROVIDERS: ATTEND Physician Assistant Surgical | DX: Z02.9 Encounter for administrative examinations, unspecified (principal) ==

== ENCOUNTER → 2017-09-22 | Outpatient (CLI) | payer MEDICARE, OTHER ==
[~2017-09-22] MED LIST changes: +FENTANYL PF 100 MCG/2ML ONE; +FLUMAZENIL 0.1 MG/1 ML, 5ML ONE; +MIDAZOLAM 1 MG/ML, 5ML ONE
== END | disposition home or self-care (01) ==
LOC: RAD 08:07
PROVIDERS: ATTEND Physician Assistant Surgical
DX: S73.101A Unspecified sprain of right hip, initial encounter (principal); M48.061 Spinal stenosis, lumbar region without neurogenic claudication; M48.56XA Collapsed vertebra, not elsewhere classified, lumbar region, initial encounter for fracture; N28.1 Cyst of kidney, acquired; M70.61 Trochanteric bursitis, right hip; M70.62 Trochanteric bursitis, left hip; M47.896 Other spondylosis, lumbar region; Z98.1 Arthrodesis status; X58.XXXA Exposure to other specified factors, initial encounter; Y93.89 Activity, other specified; Y92.89 Other specified places as the place of occurrence of the external cause; Y99.8 Other external cause status
CPT/HCPCS: 72148; 73721; 99156; 99157; J2250; J3010

== ENCOUNTER 2017-11-17 15:59 | Emergency (ER) | payer MEDICARE, OTHER ==
[~2017-11-17] VITALS: Ht 172.7 cm; Wt 70.0 kg
[~2017-11-17 15:59] MED LIST changes: -FENTANYL PF 100 MCG/2ML ONE; -FLUMAZENIL 0.1 MG/1 ML, 5ML ONE; -MIDAZOLAM 1 MG/ML, 5ML ONE
[2017-11-17 16:54] LABS: BASOPHILS # (AUTO) 0.07 x10^3/uL (0-0.1); BASOPHILS % (AUTO) 1 % (0-1); EOSINOPHILS # (AUTO) 0.11 x10^3/uL (0-0.4); EOSINOPHILS % (AUTO) 1 % (1-7); LYMPHOCYTES # (AUTO) 2.48 x10^3/uL (1-3.4); LYMPHOCYTES % (AUTO) 32 % (22-44); MD NO; MEAN CORPUSCULAR HEMOGLOBIN 27.9 pg (27.0-34.8); MEAN CORPUSCULAR HGB CONC 33.4 g/dL (32.4-35.8); MEAN CORPUSCULAR VOLUME 83.6 fL (80-100); MEAN PLATELET VOLUME 6.6 fL (7.4-10.4); MONOCYTES # (AUTO) 0.46 x10^3/uL (0.2-0.8); MONOCYTES % (AUTO) 6 % (2-9); NEUTROPHILS # (AUTO) 4.59 x10^3/uL (1.8-6.8); NEUTROPHILS % (AUTO) 60 % (42-75); PLATELET COUNT 257 x10^3/uL (130-400); RED BLOOD COUNT 4.89 x10^6/uL (3.82-5.3); RED CELL DISTRIBUTION WIDTH 13.8 % (9.6-15.2)
[2017-11-17 17:06] LABS: ALANINE AMINOTRANSFERASE 19 U/L (12-78); ALBUMIN 3.9 g/dL (3.4-5.0); ANION GAP 9 mmol/L (5-15); CALCIUM 9.4 mg/dL (8.5-10.1); CHLORIDE 104 mmol/L (98-107); CREATININE 0.91 mg/dL (0.55-1.02)
[2017-11-17 17:09] LABS: ALKALINE PHOSPHATASE 113 U/L (45-117); BILIRUBIN,TOTAL 0.4 mg/dL (0.2-1.0); TOTAL PROTEIN 7.3 g/dL (6.4-8.2)
[2017-11-17 17:41] VITALS: BP 180/108
[2017-11-17 17:56] LABS: CULTURE INDICATED? YES; MICROSCOPIC INDICATED
[2017-11-17] MEDS ORDERED: OMNIPAQUE 350 MG/ML, 100ML BOTTLE ONE (18:42)
[2017-11-17] MEDS ORDERED: CEFDINIR 300 MG CAPSULE PO STA (19:20)
[2017-11-17] MEDS ORDERED: CEFDINIR 300 MG CAPSULE ONE (19:28)
== END 2017-11-17 19:38 | disposition home or self-care (01) ==
LOC: ED 18:39
DX: N30.90 Cystitis, unspecified without hematuria (principal); I71.4 Abdominal aortic aneurysm, without rupture; E11.9 Type 2 diabetes mellitus without complications; I10 Essential (primary) hypertension; J44.9 Chronic obstructive pulmonary disease, unspecified; K21.9 Gastro-esophageal reflux disease without esophagitis; Z90.49 Acquired absence of other specified parts of digestive tract
CPT/HCPCS: 36415; 74022; 74177; 80053; 81001; 83690; 85025; 87077; 87086; 99285; Q9967; 87186

== ENCOUNTER 2017-11-30 13:41 | Emergency (ER) | payer MEDICARE, OTHER ==
[~2017-11-30] VITALS: Ht 172.7 cm; Wt 69.5 kg
[2017-11-30] MEDS ORDERED: ASPIRIN 81 MG TABLET CHEW PO ONE (14:00)
[2017-11-30 14:20] LABS: BASOPHILS # (AUTO) 0.02 x10^3/uL (0-0.1); BASOPHILS % (AUTO) 0 % (0-1); EOSINOPHILS # (AUTO) 0.04 x10^3/uL (0-0.4); EOSINOPHILS % (AUTO) 1 % (1-7); LYMPHOCYTES # (AUTO) 1.75 x10^3/uL (1-3.4); LYMPHOCYTES % (AUTO) 22 % (22-44); MD NO; MEAN CORPUSCULAR HEMOGLOBIN 28.2 pg (27.0-34.8); MEAN CORPUSCULAR HGB CONC 33.8 g/dL (32.4-35.8); MEAN CORPUSCULAR VOLUME 83.5 fL (80-100); MEAN PLATELET VOLUME 6.8 fL (7.4-10.4); MONOCYTES # (AUTO) 0.33 x10^3/uL (0.2-0.8); MONOCYTES % (AUTO) 4 % (2-9); NEUTROPHILS # (AUTO) 5.73 x10^3/uL (1.8-6.8); NEUTROPHILS % (AUTO) 73 % (42-75); PLATELET COUNT 275 x10^3/uL (130-400); RED BLOOD COUNT 4.98 x10^6/uL (3.82-5.3); RED CELL DISTRIBUTION WIDTH 13.1 % (9.6-15.2)
[2017-11-30 14:29] LABS: ALBUMIN 4.1 g/dL (3.4-5.0); ANION GAP 7 mmol/L (5-15); CALCIUM 9.3 mg/dL (8.5-10.1); CHLORIDE 102 mmol/L (98-107)
[2017-11-30 14:33] LABS: ALANINE AMINOTRANSFERASE 13 U/L (12-78); ALKALINE PHOSPHATASE 126 U/L (45-117); BILIRUBIN,TOTAL 0.5 mg/dL (0.2-1.0); CREATININE 0.97 mg/dL (0.55-1.02); TOTAL PROTEIN 7.6 g/dL (6.4-8.2)
[2017-11-30] MEDS ORDERED: ASPIRIN 81 MG TABLET CHEW ONE (15:21)
[2017-11-30 15:44] VITALS: BP 177/96
[2017-11-30 15:50] LABS: CULTURE INDICATED? NO; MICROSCOPIC AUTO
[2017-11-30] MEDS ORDERED: AMLODIPINE 5 MG TABLET ONE (15:54)
[2017-11-30] MEDS ORDERED: SODIUM CHLORIDE FLUSH 10ML SYR IVF ONE (16:00)
[2017-11-30] MEDS ORDERED: AMLODIPINE 5 MG TABLET PO ONE (16:00)
[2017-11-30] MEDS ORDERED: OMNIPAQUE 350 MG/ML, 100ML BOTTLE ONE (16:15)
== END 2017-11-30 17:03 | disposition home or self-care (01) ==
LOC: ED 15:49
DX: R10.30 Lower abdominal pain, unspecified (principal); E11.65 Type 2 diabetes mellitus with hyperglycemia; I10 Essential (primary) hypertension; J44.9 Chronic obstructive pulmonary disease, unspecified; Z90.710 Acquired absence of both cervix and uterus; K21.9 Gastro-esophageal reflux disease without esophagitis; Z90.49 Acquired absence of other specified parts of digestive tract
CPT/HCPCS: 36415; 71045; 74177; 80053; 81001; 85025; 93005; 99285; Q9967

== ENCOUNTER → 2017-12-04 | Outpatient (CLI) | payer MEDICARE, OTHER | END | disposition home or self-care (01) | LOC: RAD 11:56 | PROVIDERS: ATTEND Neurological Surgery | DX: M43.16 Spondylolisthesis, lumbar region (principal); M48.56XA Collapsed vertebra, not elsewhere classified, lumbar region, initial encounter for fracture; Z98.890 Other specified postprocedural states; Z90.49 Acquired absence of other specified parts of digestive tract | CPT/HCPCS: 72110 ==

== ENCOUNTER 2018-08-30 12:38 | Emergency (ER) | payer MEDICARE, OTHER ==
[~2018-08-30] VITALS: Ht 170.2 cm; Wt 70.0 kg
[~2018-08-30 12:38] MED LIST changes: -AMLO10TA2 PO; +AMLO10TA6 PO; +TRAZ-136 PO; -TRAZ50TA18 PO
[2018-08-30] MEDS ORDERED: MORPHINE SULFATE 4 MG/ML, 1ML ONE ×2 (13:23→14:16)
[2018-08-30] MEDS: MORPHINE SULFATE 4 MG/ML, 1ML IVPush PRN ×2 (13:27→14:21)
[2018-08-30] MEDS ORDERED: SODIUM CHLORIDE FLUSH 10ML SYR IVF ONE (13:30)
[2018-08-30 14:02] LABS: BASOPHILS # (AUTO) 0.02 x10^3/uL (0-0.1); BASOPHILS % (AUTO) 0 % (0-1); EOSINOPHILS # (AUTO) 0.02 x10^3/uL (0-0.4); EOSINOPHILS % (AUTO) 0 % (1-7); LYMPHOCYTES # (AUTO) 0.98 x10^3/uL (1-3.4); LYMPHOCYTES % (AUTO) 11 % (22-44); MD NO; MEAN CORPUSCULAR HEMOGLOBIN 28.4 pg (27.0-34.8); MEAN CORPUSCULAR HGB CONC 33.6 g/dL (32.4-35.8); MEAN CORPUSCULAR VOLUME 84.7 fL (80-100); MEAN PLATELET VOLUME 6.9 fL (7.4-10.4); MONOCYTES # (AUTO) 0.35 x10^3/uL (0.2-0.8); MONOCYTES % (AUTO) 4 % (2-9); NEUTROPHILS # (AUTO) 7.19 x10^3/uL (1.8-6.8); NEUTROPHILS % (AUTO) 84 % (42-75); PLATELET COUNT 235 x10^3/uL (130-400)
[2018-08-30 14:09] LABS: INTERNATIONAL NORMALIZED RATIO 0.96 (0.93-1.1); PROTHROMBIN TIME 9.9 Seconds (9.6-11.5)
[2018-08-30 14:10] LABS: ALBUMIN 3.7 g/dL (3.4-5.0); ANION GAP 11 mmol/L (5-15); CALCIUM 8.9 mg/dL (8.5-10.1); CHLORIDE 105 mmol/L (98-107)
[2018-08-30 14:13] LABS: ALANINE AMINOTRANSFERASE 29 U/L (12-78); ALKALINE PHOSPHATASE 123 U/L (45-117); BILIRUBIN,TOTAL 0.4 mg/dL (0.2-1.0); CREATININE 0.95 mg/dL (0.55-1.02); TOTAL PROTEIN 7.4 g/dL (6.4-8.2)
[2018-08-30] MEDS ORDERED: ONDANSETRON ODT 4 MG ONE (14:20)
[2018-08-30] MEDS ORDERED: ONDANSETRON ODT 4 MG PO ONE (14:30)
[2018-08-30] MEDS ORDERED: OXYcodone IR 5MG TABLET PO ONE (15:30)
[2018-08-30] MEDS ORDERED: OXYcodone IR 5MG TABLET ONE (15:31)
[2018-08-30 16:02] VITALS: BP 134/74
== END 2018-08-30 16:11 | disposition home or self-care (01) ==
LOC: ED 16:00
DX: S52.592A Other fractures of lower end of left radius, initial encounter for closed fracture (principal); S70.02XA Contusion of left hip, initial encounter; K21.9 Gastro-esophageal reflux disease without esophagitis; I10 Essential (primary) hypertension; E11.9 Type 2 diabetes mellitus without complications; J44.9 Chronic obstructive pulmonary disease, unspecified; F41.1 Generalized anxiety disorder; Z90.49 Acquired absence of other specified parts of digestive tract; Z90.710 Acquired absence of both cervix and uterus; W18.30XA Fall on same level, unspecified, initial encounter; Y93.89 Activity, other specified; Y99.8 Other external cause status; Y92.89 Other specified places as the place of occurrence of the external cause
CPT/HCPCS: 29125; 36415; 73110; 73502; 80053; 85025; 85610; 85730; 96374; 96376; 99285; Q0162

== ENCOUNTER → 2018-09-08 | Outpatient (CLI) | payer MEDICARE, OTHER | END | disposition home or self-care (01) | LOC: CFH 14:38 | PROVIDERS: ATTEND Physician Assistant Surgical | DX: M48.061 Spinal stenosis, lumbar region without neurogenic claudication (principal); M48.56XA Collapsed vertebra, not elsewhere classified, lumbar region, initial encounter for fracture; N28.1 Cyst of kidney, acquired; M47.896 Other spondylosis, lumbar region | CPT/HCPCS: 72131 ==

== ENCOUNTER → 2019-02-21 | Outpatient (CLI) | payer MEDICARE, OTHER ==
[~2019-02-21] MED LIST changes: -AMLO10TA6 PO; +AMLO10TA8 PO; -DICL100T4 PO; +DICL100T80 PO; -GABA600T2 PO; +GABA600T7 PO; +OMNIPAQUE 350 MG/ML, 100ML BOTTLE ONE; +SERT100T32 PO; -SERT100T5 PO; -TRAZ-136 PO; +TRAZ50TA66 PO; -TRIA15CR3 TP; +TRIA15CR61 TP
== END | disposition home or self-care (01) ==
LOC: CFH 13:07
PROVIDERS: ATTEND Internal Medicine
DX: I70.0 Atherosclerosis of aorta (principal); I70.8 Atherosclerosis of other arteries; I71.4 Abdominal aortic aneurysm, without rupture; N28.1 Cyst of kidney, acquired
CPT/HCPCS: 74175; 82565; Q9967

== ENCOUNTER → 2019-03-30 | Outpatient (CLI) | payer MEDICARE, OTHER ==
[~2019-03-30] MED LIST changes: -OMNIPAQUE 350 MG/ML, 100ML BOTTLE ONE
== END | disposition home or self-care (01) ==
LOC: CVU 09:49
PROVIDERS: ATTEND Surgery
DX: I70.213 Atherosclerosis of native arteries of extremities with intermittent claudication, bilateral legs (principal); E11.51 Type 2 diabetes mellitus with diabetic peripheral angiopathy without gangrene; I10 Essential (primary) hypertension; J44.9 Chronic obstructive pulmonary disease, unspecified
CPT/HCPCS: 93922; 93925

== ENCOUNTER 2020-03-10 08:41 | Emergency (ER) | payer MEDICARE, OTHER ==
[~2020-03-10] VITALS: Ht 172.7 cm; Wt 77.3 kg
[~2020-03-10 08:41] MED LIST changes: -VALA1000 PO; +VALA10007 PO
[2020-03-10 08:46] VITALS: BP 97/76
--- NOTE | 2020-03-10 09:17 | NUR ---
PROVIDER IN ROOM PLAN XR. STREP SWAB SENT BY PA.
== END 2020-03-10 10:14 | disposition home or self-care (01) ==
LOC: ED 09:27
DX: B34.9 Viral infection, unspecified (principal); I10 Essential (primary) hypertension; E11.9 Type 2 diabetes mellitus without complications; K21.9 Gastro-esophageal reflux disease without esophagitis; J44.9 Chronic obstructive pulmonary disease, unspecified
CPT/HCPCS: 71045; 87081; 87880; 99284

== ENCOUNTER 2020-03-16 21:50 | Emergency (ER) | payer MEDICARE, OTHER ==
[~2020-03-16] VITALS: Ht 172.7 cm; Wt 77.2 kg
[2020-03-16] MEDS ORDERED: ONDANSETRON 2MG/ML, 2ML ONE (22:11)
[2020-03-16] MEDS ORDERED: MORPHINE SULFATE 4 MG/ML, 1ML ONE (22:12)
[2020-03-16] MEDS ORDERED: MORPHINE SULFATE 4 MG/ML, 1ML IVPush PRN (22:30)
[2020-03-16] MEDS ORDERED: ONDANSETRON 2MG/ML, 2ML IVPush ONE (22:30)
[2020-03-16 22:40] LABS: MICROSCOPIC AUTO
[2020-03-16 22:49] LABS: CULTURE INDICATED? YES
--- NOTE | 2020-03-16 23:03 | NUR ---
Patient presents to ER c/o low back pain and weakness x1 week. Patient has a hx of LBP however it has been worse the last week with increasing weakness. Patient is having a difficult time walking steadily. Patient is in obvious discomfort. Respirations even and unlabored. Medicated patient per dec.
[2020-03-16 23:04] LABS: BASOPHILS # (AUTO) 0.02 x10^3/uL (0-0.1); BASOPHILS % (AUTO) 0 % (0-1); EOSINOPHILS # (AUTO) 0.16 x10^3/uL (0-0.4); EOSINOPHILS % (AUTO) 2 % (1-7); LYMPHOCYTES # (AUTO) 1.65 x10^3/uL (1-3.4); LYMPHOCYTES % (AUTO) 18 % (22-44); MD NO; MEAN CORPUSCULAR HGB CONC 33.3 g/dL (32.4-35.8); MEAN CORPUSCULAR VOLUME 84.3 fL (80-100); MEAN PLATELET VOLUME 7.4 fL (7.4-10.4); MONOCYTES # (AUTO) 0.59 x10^3/uL (0.2-0.8); MONOCYTES % (AUTO) 6 % (2-9); NEUTROPHILS # (AUTO) 6.87 x10^3/uL (1.8-6.8); NEUTROPHILS % (AUTO) 74 % (42-75); PLATELET COUNT 223 x10^3/uL (130-400); RED BLOOD COUNT 4.87 x10^6/uL (3.82-5.3); RED CELL DISTRIBUTION WIDTH 12.8 % (9.6-15.2)
[2020-03-16 23:15] LABS: ALANINE AMINOTRANSFERASE 22 U/L (12-78); ALBUMIN 3.7 g/dL (3.4-5.0); ANION GAP 6 mmol/L (5-15); CALCIUM 9.4 mg/dL (8.5-10.1); CHLORIDE 100 mmol/L (98-107); CREATININE 1.23 mg/dL (0.55-1.02)
[2020-03-16 23:17] LABS: ALKALINE PHOSPHATASE 144 U/L (45-117); BILIRUBIN,TOTAL 0.6 mg/dL (0.2-1.0); TOTAL PROTEIN 7.8 g/dL (6.4-8.2)
[2020-03-17 00:09] VITALS: BP 101/55
--- NOTE | 2020-03-17 00:18 | NUR ---
Discharge instructions given. All questions and concerns addressed. Patient wheeled out in a wheelchair. Belongings with patient.
[2020-03-17] MEDS ORDERED: TAMS-11 PO (17:50)
[2020-03-17] MEDS ORDERED: PREG100C PO (17:50)
[2020-03-17] MEDS ORDERED: LINA145C PO (17:50)
== END 2020-03-17 00:20 | disposition home or self-care (01) ==
LOC: ED 23:04
DX: M54.5 Low back pain (principal); M54.6 Pain in thoracic spine; R30.0 Dysuria; I10 Essential (primary) hypertension; E11.65 Type 2 diabetes mellitus with hyperglycemia; K21.9 Gastro-esophageal reflux disease without esophagitis; J44.9 Chronic obstructive pulmonary disease, unspecified; Z90.49 Acquired absence of other specified parts of digestive tract; Z90.89 Acquired absence of other organs; Z90.710 Acquired absence of both cervix and uterus; Z87.891 Personal history of nicotine dependence
CPT/HCPCS: 36415; 72110; 80053; 81001; 85025; 87077; 87086; 96374; 96375; 99284; J2270; J2405; 87186